=== PATIENT | female | born 1980 | race Caucasian/White ===

== ENCOUNTER 2016-02-18 04:55 | Inpatient (IN) | payer OTHER ==
[2016-02-18] MEDS ORDERED: LIDOCAINE 1% 30 ML SDV SC PRN (05:41)
[2016-02-18] MEDS ORDERED: EPSOM SALT 454 GM TP PRN (05:41)
[2016-02-18] MEDS ORDERED: LR 1,000 ML IV PRN (05:41)
[2016-02-18] MEDS ORDERED: MINERAL OIL 60 ML OIL TP PRN (05:41)
[2016-02-18] MEDS ORDERED: TERBUTALINE SULFATE 1 MG/ML VIAL IV PRN (05:41)
[2016-02-18] MEDS ORDERED: OXYTOCIN/RINGERS LACTATE 1,000 ML IV PRN (05:41)
[2016-02-18] MEDS ORDERED: MISOPROSTOL 200 MCG TAB ONE (05:43)
[2016-02-18] MEDS ORDERED: TERBUTALINE SULFATE 1 MG/ML VIAL ONE (05:43)
[2016-02-18] MEDS ORDERED: AMMONIA AROMATIC 1 EACH AMP IH ONE (05:43)
[2016-02-18] MEDS ORDERED: LIDOCAINE 1% 30 ML SDV ONE (05:44)
[2016-02-18] MEDS ORDERED: OXYTOCIN 10 UNIT/ML VIAL ONE (05:44)
--- NOTE | 2016-02-18 06:15 | PDGENHP ---
History and Physical - Chief Complaint contractions - History of Present Illness Patient is a healthy 35 year old at 38w6d (PAULA = 02/26/16 by LMP and 1st trim US) here for labor. She started geovanni around 10 pm, at first mild but then became more intense. Here with her ina Armenta and Trish. No leaking or bleeding. Active baby. Followed by Dr. Bronson Graham , pregnacy complicated by AMA with normal screening, also abnl 1 hr GTT with normal 3hr, and at 34 weeks she developed swelling and was found to have elevated 24h urine protein and a creatinine = 1.0. Creatinine has continued to be monitored and is stable. She has no elevated BPs or PIH symptoms. labs reviewed, WNL including Rh+, Rub imm, GBS neg. s/p Tdap and flu vaccines. History Information - Allergies/Home Medication List Allergies/Adverse Reactions: No Known Allergies Allergy (Unverified 02/18/16 05:39) Home Medications: Fish Oil 1 tab PO DAILY 02/18/16 [Last Taken 02/16/16] Magnesium 1 tab PO DAILY 02/18/16 [Last Taken 02/16/16] 1 tab PO DAILY 02/18/16 [Last Taken 02/16/16] Vitamin C 1,000 mg PO DAILY 02/18/16 [Last Taken 02/16/16] I have personally reviewed and updated: family history, medical history, social history, surgical history - Social History Smoking Status: Never smoked Review of Systems ROS: 10pt was reviewed & negative except for what was stated in HPI & below Physical Exam Physical Exam: 119/75, 92, 22, 36.6 Gen: alert, NAD, in pain during contractions Resp: unlabored CV: reg rate Abd: gravid, soft, nontender. EFW = 7.5# Ext: trace edema SVE: 8-9cm/90/0/vtx/intact FHR: Baseline 110-115, mod gasper, + accels, early decelerations. Cat 1 [place]: q3-4 minutes Assessment & Plan Assessment: Assessment: Term active labor FHR reassuring GBS negative CBC, T&S ordered, will also repeat PIH labs given the previous high creatinine Plan: Routine intrapartum care. Desires unmedicated delivery Expectant management, plan for Intermittent monitoring per protocol
[2016-02-18 06:32] LABS: % IMMATURE GRANULYOCYTES 0.6 % (0.0-1.1); ABSOLUTE IMMATURE GRANULOCYTES 0.11 10^3/uL (0.00-0.10); ADD DIFF? NO; ADD MORPH? NO; ADD SCAN? NO; ATYPICAL LYMPHOCYTE FLAG 10 (0-99); FRAGMENT RBC FLAG 0 (0-99); HEMOGLOBIN 13.6 g/dL (12.6-16.3); LEFT SHIFT FLG 0 (0-99); LIPEMIA HEMOLYSIS FLAG 90 (0-99); MEAN CELL HEMOGLOBIN 31.9 pg (27.9-34.1); MEAN CELL HEMOGLOBIN CONCENTR. 35.8 g/dL (32.4-36.7); MEAN PLATELET VOLUME 10.6 fL (8.7-11.7); PLATELET CLUMPS FLAG 0 (0-99); PLATELET COUNT 289 10^3/uL (150-400); RED BLOOD CELL COUNT 4.27 10^6/uL (4.18-5.33); RED CELL DISTRIBUTION WIDTH 12.6 % (11.5-15.2)
[2016-02-18 07:09] LABS: ALANINE AMINOTRANSFERASE 33 IU/L (9-52); ASPARTATE AMINOTRANSFERASE 28 IU/L (14-46); BILIRUBIN,TOTAL 0.5 mg/dL (0.1-1.4); BILIRUBIN-CONJUGATED 0.1 mg/dL (0.0-0.5); BILIRUBIN-UNCONJUGATED 0.4 mg/dL (0.0-1.1); CREATININE 0.8 mg/dL (0.6-1.0); GLOMERULAR FILTRATION RATE > 60; LACTATE DEHYDROGENASE 524 IU/L (313-618); URIC ACID 6.4 mg/dL (2.5-6.8)
[2016-02-18] MEDS ORDERED: HYDROCODONE/APAP 5/325 TAB PO PRN (09:12)
[2016-02-18] MEDS ORDERED: HYDROCORTISONE 0.5% CREAM TP PRN (09:12)
[2016-02-18] MEDS ORDERED: SIMETHICONE 80 MG TAB CHEW PO PRN (09:12)
--- NOTE | 2016-02-18 09:15 | OBPROC ---
- Labor and Delivery Onset of Contractions Date: 02/17/16 Onset of Contractions Time: 22:00 Onset of Contractions Type: Spontaneous Rupture of Membranes Date: 02/18/16 Rupture of Membranes Time: 06:25 Rupture of Membranes Type: Spontaneous Amniotic Fluid Color: Clear Dilation Complete Time: 08:15 Delivery Type: Spontaneous Placenta Delivery Date: 02/18/16 Placenta Delivery Time: 08:55 Episiotomy/Laceration: 2nd Degree Repair: 3-0, Vicryl EBL: 100 ml Complications: None - Medications Labor Augmentation/Induction Meds Used: None Anesthesia: Local (Specify) - Info Infant A Delivery Date: 02/18/16 Delivery Time: 08:47 Sex of : Male
[2016-02-18] MEDS: IBUPROFEN 600 MG TAB PO PRN ×3 (09:21→22:11)
[2016-02-18] MEDS: DOCUSATE SODIUM 100 MG CAP PO PRN (22:10)
[2016-02-19] MEDS: IBUPROFEN 600 MG TAB PO PRN ×4 (04:00→23:14)
--- NOTE | 2016-02-19 08:32 | SOAPPROG ---
SOAP Progress Note Assessment/Plan: Assessment: PPD#1 s/p , recovering appropriately s/p flu and tdap Rh pos, Rub imm Plan: Routine care Discharge home tomorrow 02/19/16 08:30 Subjective: Feeling great, bleeding slowed down a lot, pain is controlled with motrin. Ambulating, able to urinate and eat normally. Trying to pump to stimulate milk to come in Objective: Vital Signs Temp Pulse Resp BP Pulse Ox 36.9 C 59 L 16 122/75 H 96 02/18/16 20:00 02/18/16 20:00 02/18/16 20:00 02/18/16 20:00 02/18/16 20:00 Laboratory Results 02/18/16 06:15 02/18/16 06:15 Gen: NAD Breasts: soft Resp:unlabored Abd: soft, umbilicus firm below U Ext: no edema ICD10 Worksheet Patient Problems: Problems Problem Status Diagnosed Vaginal delivery Acute - ICD10 Problem Qualifiers (1) Vaginal delivery
[2016-02-19 22:40] VITALS: RESP 16
[2016-02-19] MEDS: DOCUSATE SODIUM 100 MG CAP PO PRN (23:14)
[2016-02-20] MEDS: IBUPROFEN 600 MG TAB PO PRN (07:56)
[2016-02-20] MEDS: DOCUSATE SODIUM 100 MG CAP PO PRN (07:56)
--- NOTE | 2016-02-20 08:16 | OBGCSDC ---
General Delivery Information - General Info : 1 Para: 1 Delivery Date: 02/18/16 Delivery Physician/CNM: Winnie Metcalf Admission Date: 02/18/16 Labs: Patient ABO/Rh A POSITIVE 02/18/16 06:15 Hct 38.0 % (38.0-47.0) 02/18/16 06:15 - Info Infant A Sex of Infant: Male Score (1 Min): 8 Score (5 Min): 9 Vaginal - Diagnosis IUP (Weeks): 38 6/7 Labor: Spontaneous Rupture of Membranes Type: Spontaneous Amniotic Fluid Color: Clear Laceration: 2nd Degree Repair: 3-0, Vicryl Complications: None - Operations/Procedures Delivery Type: Spontaneous - Delivery EBL: 100 ml Anesthesia: Local (Specify) Discharge Information - Discharge Information Discharge Medications: Ibuprofen, Vitamins, Vicodin Condition: Good Instruction/Follow Up: Six Weeks Discharge Physician/CNM: Madie Khan Discharge Date: 02/20/16 Dictated: No
[2016-02-20 11:56] VITALS: BP 117/84; PULSE 59; TEMP 98.2; O2SAT 96
== END 2016-02-20 13:40 | disposition home or self-care (01) | DRG 775 ==
LOC: OBSVTOIN 04:55 → FLD 04:55 → FOB 12:28
PROVIDERS: ADMIT Obstetrics & Gynecology; ATTEND Obstetrics & Gynecology
PROC: 10E0XZZ Delivery of Products of Conception, External Approach (ICD-10-PCS; principal; 2016-02-18)
PROC: 0KQM0ZZ Repair Perineum Muscle, Open Approach (ICD-10-PCS; principal; 2016-02-18)
DX: O70.1 Second degree perineal laceration during delivery (principal); O09.523 Supervision of elderly multigravida, third trimester; Z3A.38 38 weeks gestation of pregnancy; Z37.0 Single live birth
CPT/HCPCS: J2590; J3105